=== PATIENT | female | born 1940 | race Caucasian/White ===

== ENCOUNTER 2020-02-08 17:00 | Emergency (ER) | payer MEDICARE, OTHER, SELFPAY ==
[2020-02-08 17:06] VITALS: BP 126/80; PULSE 83; RESP 18; TEMP 36.2; O2SAT 95; BMI 20.5
--- NOTE | 2020-02-08 18:21 | ED_ITS ---
HPI - Abdominal Pain General: Chief Complaint: Abdominal Pain Stated Complaint: r sided abd pain Time Seen by Provider: 02/08/20 18:20 History of Present Illness: HPI narrative: Patient is a 79-year-old female comes to the ED with abdominal pain. She has a past medical history of hypertension, hyperlipidemia, aortic valve replacement and A. fib. Patient does take warfarin. Approximately 4 weeks ago patient was hospitalized after having a fall down a flight of stairs and she sustained lumbar compression fractures. She says she has been going to physical therapy for the past 2 to 3 weeks and has been doing well. Patient says she noticed some right rib pain that seemed mild since she had her fall injury. She notes the last 2 days she the right rib pain has gotten worse. Pain is pleuritic and worsens with any kind of movement. Denies any recent injury or fall in the past week to bring about right rib pain. She is currently on hydrocodone 5/325mg for her compression fractures and says she has been taking it to help with her right rib pain. Patient does say she is constipated and her last bowel movement was yesterday. She says is normal for her to have a bowel movement once every 2 days and she says stool is hard. Denies any fever, chills, chest pain, shortness of breath, nausea/vomiting, abdominal pain, diarrhea, dysuria or hematuria. Associated Symptoms: Denies chills, constipation, diarrhea, dysuria, fever(s), hematochezia, hematuria, nausea and vomiting Review of Systems Const: Denies: fever(s), chills or fatigue Eyes: Denies: change in vision or eye discomfort ENMT: Denies: throat pain, odynophagia, nasal discharge or nasal congestion Card: Reports: other (Right rib pain that is pleuritic.); Denies: chest pain, palpitations, edema, swelling of feet/ankles, dyspnea on exertion or orthopnea Resp: Reports: pain on inspiration (Right rib pain upon deep inspiration.); Denies: dyspnea, productive cough or non-productive cough GI: Denies: abdominal pain, nausea, vomiting, diarrhea, constipation or hematochezia : Denies: flank pain, dysuria or hematuria Musc: Denies: neck pain, back pain or extremity swelling Skin/Breast: Denies: rash or new lesions Neuro: Denies: headache(s), numbness in extremities or weakness in extremities PFSH ED PFSH: Medical History Anemia Atrial fibrillation Essential hypertension GERD (gastroesophageal reflux disease) Hyperlipidemia Pulmonary HTN Severe aortic stenosis Shingles Warfarin anticoagulation Surgical History S/P angioplasty with stent S/P AVR (aortic valve replacement) S/P hip replacement S/P rotator cuff repair Status cardiac pacemaker Family History Grandmother Hypertension CHF (congestive heart failure) Other Cancer Social History Smoking and tobacco status: former smoker Alcohol intake: never Lives independently: Yes Marital status: / Current occupational status: retired Current gender identity: Female Josiane/Spiritism: Restorationism Physical Exam Const: COMMON NORMALS: no acute distress, patient oriented x3, healthy appearing and alert GENERAL APPEARANCE: cooperative and comfortable HENMT: COMMON NORMALS: normocephalic HEAD & SCALP: normocephalic MOUTH: Normal oral and palatal mucosa present THROAT: posterior oropharynx normal and uvula midline Neck/C-Spine: COMMON NORMALS: supple GENERAL: Yes normal visual inspection Chest: CHEST: Yes tenderness rib right mid-axillary line involving the 7th rib and involving the 8th rib Resp: COMMON NORMALS: normal respiratory effort, No retractions, No use of ac cessory muscles and clear to auscultation bilaterally AUSCULTATION: clear to auscultation bilaterally Cardio: COMMON NORMALS: regular rate, regular rhythm, S1 normal heart sound present, S2 normal heart sound present, No gallops present (Cardio), No clicks present (Cardio), No murmurs present (Cardio) and Peripheral pulses 2+ throughout RATE: regular rate RHYTHM: regular rhythm HEART SOUNDS: S1 normal heart sound present and S2 normal heart sound present PERIPHERAL PULSES: Peripheral pulses 2+ throughout GI: COMMON NORMALS: Normal to inspection, nondistended, normoactive bowel sounds present, Soft to palpation, non-tender and no masses PALPATION: Yes Soft to palpation OTHER: Patient has no abdominal tenderness throughout all the quadrants with deep and light palpation. : COMMON NORMALS: Yes no CVA tenderness BLADDER/KIDNEY EXAM: Yes no CVA tenderness Back/Pelvis: COMMON NORMALS: no CVA tenderness Extremity: COMMON NORMALS: normal to inspection and no pedal edema Neuro: COMMON NORMALS: patient oriented x3 SENSORIUM/ORIENTATION: Yes alert GAIT: Yes Normal gait present Skin: GENERAL SKIN EXAM: dry skin Course Vital Signs: Vital signs: Vital Signs Temperature 97.1 F L 02/08/20 17:06 Pulse Rate 63 02/08/20 21:04 Respiratory Rate 18 02/08/20 21:04 Blood Pressure 106/63 02/08/20 21:04 Pulse Oximetry 95 02/08/20 21:04 MDM - Abdominal Pain MDM Narrative: Medical decision making narrative: Patient is an 79-year-old female comes to the ED with pleuritic right rib pain. Patient had a fall approximately 4 weeks ago and was hospitalized for it. She had lumbar compression fractures from fall. Patient says she has noticed some right rib pain about a week ago but it got more severe in the past couple days after physical therapy. Patient also complained of having some constipation. Exam shows right rib tenderness. And no abdominal tenderness upon palpation. KUB shows some moderate constipation without bowel dilation or signs of obstruction. Chest x-ray shows possible right rib fracture. CBC and CMP and lipase were within normal range. Vital stable. Patient diagnosed with right rib fracture. She was told to limit activity, rest and apply cold pack on right ribs to help with healing. Return to ED precautions given. Patient understood agree with plan. Lab Data: Attestation: I reviewed the patient's lab results. Labs: Lab Results 02/08/20 02/08/20 Range/Units 19:00 19:00 WBC 7.1 (4.0-10.0) 10^3/ uL RBC 3.39 L (4.1-5.3) 10^6/u L Hgb 10.3 L (11.5-15.3) g/dL Hct 32.0 L (37.0-47.0) % MCV 94.4 (81-99) fL MCH 30.4 (28.0-34.0) pg MCHC 32.2 (30.0-36.0) g/dL RDW 12.6 (12.1-15.1) % Plt Count 143 (130-400) 10^3/c mm MPV 12.0 H (7.4-10.4) fL Neut % (Auto) 63.3 % Lymph % (Auto) 23.6 % [place] % (Auto) 11.7 % Eos % (Auto) 0.8 % Baso % (Auto) 0.3 % Neut # (Auto) 4.48 (1.8-7.7) 10^3/u L Lymph # (Auto) 1.7 (0.8-4.8) 10^3/u L [place] # (Auto) 0.8 (0.2-0.9) 10^3/u L Eos # (Auto) 0.1 (0.0-0.8) 10^3/u L Baso # (Auto) 0.0 (0.0-0.1) 10^3/u L Nucleated RBC % (a uto) 0 % Nucleated RBCs # 0.0 /100WBC Sodium 137 (136-145) mmol/L Potassium 4.5 (3.5-5.1) mmol/L Chloride 104 (98-107) mmol/L Carbon Dioxide 26 (22-29) mmol/L Anion Gap 11.5 (5-19) BUN 15 (8-23) mg/dL Creatinine 0.8 (0.5-0.9) mg/dL GFR Calculation Not Reportable Glucose 105 (65-115) mg/dL Calculated Osmolal ity 285 (285-295) mOsm/k g Calcium 9.0 (8.5-10.5) mg/dL Total Bilirubin 0.4 (0.15-1.2) mg/dL AST 17 (0-32) U/L ALT 8 (0-33) U/L Alkaline Phosphata se 96 (35-105) IU/L Total Protein 6.0 L (6.6-8.7) g/dL Albumin 3.5 (3.5-5.2) g/dL Globulin 2.5 (1.3-4.6) g/dL Lipase 55 (13-60) U/L Imaging Data ^: KUB: Attestation: I personally reviewed and interpreted this imaging study as follows: Radiologist's impression: [address] [address] XRay Report Signed Patient: Javed Arevalo Unit #: [id number] : 1940 Age/Sex: 79 / F ADM Date: 02/08/20 Loc: ER Room/Bed: Attending Dr: Ordering Provider/Ordering MD: Oskar Waggoner Date of Service: 02/08/20 Procedure(s): XR KUB portable [id number] Accession Number(s): [id number] Report Number: [id number] PROCEDURE INFORMATION: Exam: XR Abdomen, 1 View Exam date and time: 02/08/2020 6:49 PM Age: 79 years old Clinical indication: Abdominal pain; Localized; Right; Additional info: Constipation TECHNIQUE: Imaging protocol: XR of the abdomen. Views: Frontal supine view of the abdomen. 1 View. COMPARISON: CT abdomen pelvis w con* [id number] 02/25/2018 1:06 PM FINDINGS: Gastrointestinal tract: Moderate constipation without bowel dilation or air-fluid levels to indicate obstruction. Organs: Calcified fibroid over the right pelvis. Bones/joints: Bilateral hip arthroplasty changes. XR/XR KUB portable [id number] IMPRESSION: Moderate constipation without bowel dilation or air-fluid levels to indicate obstruction. Dictated By: Reese Waters MD Signed By: Reese Waters MD Signed Date/Time: 02/08/202244 DD/ 43 CXR: Attestation: I personally reviewed and interpreted this imaging study as follows: My impression: Right rib x-ray?. Possible right rib fracture identified that is nondisplaced. Pending final radiology report. Radiologist's impression: [address] [address] XRay Report Signed Patient: Javed Arevalo Unit #: [id number] : 1940 Age/Sex: 79 / F ADM Date: 02/08/20 Loc: ER Room/Bed: Attending Dr: Ordering Provider/Ordering MD: Oskar Waggoner Date of Service: 02/08/20 Procedure(s): XR ribs RT mn 3V w CXR1V 86188 Accession Number(s): [id number] Report Number: [id number] PROCEDURE INFORMATION: Exam: XR Right Ribs with PA Chest, 3 Views Exam date and time: 02/08/2020 6:49 PM Age: 79 years old Clinical indication: Other: RT rib pain; Additional info: Right rib pain TECHNIQUE: Imaging protocol: XR Right ribs 3 views with PA chest. COMPARISON: CR Chest 2 views* [id number] 02/23/2018 4:14 PM FINDINGS: Tubes, catheters and devices: Aortic valve prosthesis. Lungs: Right midlung calcified granuloma. Calcified granulomas. Pleural space: Unremarkable. No pleural effusion. No pneumothorax. Heart/Mediastinum: Unremarkable. No cardiomegaly. Bones/joints: Right humeral head surgical anchors. XR/XR ribs RT mn 3V w CXR1V [id number] IMPRESSION: Negative for right rib bony abnormality. Dictated By: Reese Waters MD Signed By: Reese Waters MD Signed Date/Time: 02/08/202243 DD/ 42 Discharge Plan Discharge Patient Disposition: Home Clinical Impression: Right rib fracture Qualifiers: Encounter type: initial encounter Rib fracture type: single rib Fracture type: closed Qualified Code(s): S22.31XA - Fracture of one rib, right side, initial encounter for closed fracture Condition: Stable Prescriptions: No Action omeprazole 20 mg capsule,delayed release(DR/EC) 20 mg PO QDAY RF: 0 olmesartan-hydrochlorothiazide 20-12.5 mg tablet 1 tab PO QDAY RF: 0 timolol 0.25 % drops 1 drop ophthalmic (eye) QDAY RF: 0 furosemide 40 mg tablet 40 mg PO QAM RF: 0 vit C,E,Zn,Mv--aws-zeax 250-2.5-0.5 mg capsule PO DAILY RF: 0 escitalopram oxalate [Lexapro] 5 mg tablet 5 mg PO QDAY RF: 0 levothyroxine 50 mcg tablet 50 mcg PO QDAY RF: 0 atorvastatin 10 mg tablet 10 mg PO QDAY RF: 0 warfarin 1 mg tablet 1 mg PO DAILY Qty: 30 RF: 3 warfarin 2 mg tablet 2 mg PO DAILY Qty: 30 RF: 3 warfarin 2.5 mg tablet 2.5 mg PO DAILY Qty: 30 RF: 3 Discharge Orders: Discharge ED (Routine); Ordered 02/08/20 Ordered By: Oskar Waggoner Referrals: Oskar Meehan MD [Primary Care Provider] - Discharge Diet: Regular Discharge Activity: Limit activity as instructed Patient Instructions: Rib Fracture (ED) Activity Restrictions/Additional Instructions: Follow-up with medical provider as directed in 7 to 10 days for reevaluation. Continue taking all home medications as prescribed. Take your previously prescribed pain medications to help with right rib pain. Limit activity and lifting rest and ice sore spot on ribs. Return to the ER or your medical provider if condition worsens. Please read and understand discharge instructions. If any questions, please ask. Coding Level of Care Code ED Cream Separator Operator for Sudarshan Fwd Exam Comprehensive
--- NOTE | 2020-02-08 18:39 | XRR_ITS ---
PROCEDURE INFORMATION: Exam: XR Right Ribs with PA Chest, 3 Views Exam date and time: 02/08/2020 6:49 PM Age: 79 years old Clinical indication: Other: RT rib pain; Additional info: Right rib pain TECHNIQUE: Imaging protocol: XR Right ribs 3 views with PA chest. COMPARISON: CR Chest 2 views* [id number] 02/23/2018 4:14 PM FINDINGS: Tubes, catheters and devices: Aortic valve prosthesis. Lungs: Right midlung calcified granuloma. Calcified granulomas. Pleural space: Unremarkable. No pleural effusion. No pneumothorax. Heart/Mediastinum: Unremarkable. No cardiomegaly. Bones/joints: Right humeral head surgical anchors. XR/XR ribs RT mn 3V w CXR1V [id number] IMPRESSION: Negative for right rib bony abnormality.
--- NOTE | 2020-02-08 18:39 | XRR_ITS ---
PROCEDURE INFORMATION: Exam: XR Abdomen, 1 View Exam date and time: 02/08/2020 6:49 PM Age: 79 years old Clinical indication: Abdominal pain; Localized; Right; Additional info: Constipation TECHNIQUE: Imaging protocol: XR of the abdomen. Views: Frontal supine view of the abdomen. 1 View. COMPARISON: CT abdomen pelvis w con* [id number] 02/25/2018 1:06 PM FINDINGS: Gastrointestinal tract: Moderate constipation without bowel dilation or air-fluid levels to indicate obstruction. Organs: Calcified fibroid over the right pelvis. Bones/joints: Bilateral hip arthroplasty changes. XR/XR KUB portable [id number] IMPRESSION: Moderate constipation without bowel dilation or air-fluid levels to indicate obstruction.
--- NOTE | 2020-02-08 18:56 | PC.NURSE ---
PCXR at bedside
[2020-02-08 19:00] VITALS: BP 105/56; PULSE 90; RESP 18; O2SAT 95
[2020-02-08 19:29] LABS: Basophils % 0.3 %; Eosinophils # 0.1 10^3/uL (0.0-0.8); Eosinophils % 0.8 %; Hemoglobin 10.3 g/dL (11.5-15.3); Lymphocytes # 1.7 10^3/uL (0.8-4.8); Lymphocytes % 23.6 %; Mean Corpuscular HGB Conc 32.2 g/dL (30.0-36.0); Mean Corpuscular Hemoglobin 30.4 pg (28.0-34.0); Mean Corpuscular Volume 94.4 fL (81-99); Monocytes # 0.8 10^3/uL (0.2-0.9); Monocytes % 11.7 %; Neutrophils # 4.48 10^3/uL (1.8-7.7); Neutrophils % 63.3 %; Nucleated Red Blood Cells % 0 %; Platelet Count 143 10^3/cmm (130-400); Red Blood Count 3.39 10^6/uL (4.1-5.3); Red Cell Distribution Width 12.6 % (12.1-15.1); White Blood Count 7.1 10^3/uL (4.0-10.0)
[2020-02-08 20:00] VITALS: PULSE 84; RESP 18; O2SAT 94
[2020-02-08 20:05] VITALS: O2SAT 93
[2020-02-08 20:07] LABS: Alanine Aminotransferase 8 U/L (0-33); Albumin Level 3.5 g/dL (3.5-5.2); Alkaline Phosphatase 96 IU/L (35-105); Anion Gap 11.5 (5-19); Aspartate Amino Transferase 17 U/L (0-32); Blood Urea Nitrogen 15 mg/dL (8-23); Carbon Dioxide 26 mmol/L (22-29); Chloride 104 mmol/L (98-107); Globulin 2.5 g/dL (1.3-4.6); Glucose 105 mg/dL (65-115); Lipase 55 U/L (13-60); Osmolality Calculated 285 mOsm/kg (285-295); Potassium 4.5 mmol/L (3.5-5.1); Sodium 137 mmol/L (136-145); Total Bilirubin 0.4 mg/dL (0.15-1.2)
[2020-02-08 21:04] VITALS: BP 106/63; PULSE 63; RESP 18; O2SAT 95
== END 2020-02-08 21:39 | disposition home or self-care (01) ==
PROVIDERS: Emergency Provider Physician Assistant; PCP Family Medicine
DX: S22.31XA Fracture of one rib, right side, initial encounter for closed fracture (principal); Z79.01 Long term (current) use of anticoagulants; I48.91 Unspecified atrial fibrillation; I10 Essential (primary) hypertension; E78.5 Hyperlipidemia, unspecified; Z95.0 Presence of cardiac pacemaker; Z87.891 Personal history of nicotine dependence; W10.8XXA Fall (on) (from) other stairs and steps, initial encounter
CPT/HCPCS: 12345; 71101; 74018; 80053; 83690; 85025; 99283

== ENCOUNTER 2020-07-03 21:31 | Emergency (ER) | payer MEDICARE, OTHER, SELFPAY ==
[2020-07-03 21:52] VITALS: BP 190/92; PULSE 77; RESP 18; TEMP 36.6; O2SAT 96; BMI 19.8
--- NOTE | 2020-07-03 23:29 | CTR_ITS ---
PROCEDURE INFORMATION: Exam: CT Abdomen And Pelvis With Contrast Exam date and time: 07/03/2020 11:31 PM Age: 79 years old Clinical indication: Abdominal pain; Localized; Right lower quadrant (rlq); Prior surgery; Surgery type: Bilat thr; Patient HX: Rlq pain TECHNIQUE: Imaging protocol: Computed tomography of the abdomen and pelvis with contrast. Radiation optimization: All CT scans at this facility use at least one of these dose optimization techniques: automated exposure control; mA and/or kV adjustment per patient size (includes targeted exams where dose is matched to clinical indication); or iterative reconstruction. Contrast material: OMNI 300; Contrast volume: 95 ml; Contrast route: INTRAVENOUS (IV); COMPARISON: CT abdomen pelvis w con* [id number] 02/25/2018 1:06 PM RADIATION DOSE METRICS: Total DLP (mGy-cm): 1074.23 FINDINGS: Liver: Normal. No mass. Gallbladder and bile ducts: There is prominent pneumobilia with gas seen in the left hepatic lobe, common bile duct and within the gallbladder lumen. There is a prominent gallstones seen in the gallbladder fundus. Pancreas: Normal. No ductal dilation. Spleen: Normal. No splenomegaly. Adrenal glands: Normal. No mass. Kidneys and ureters: There are tiny bilateral renal cortical cysts. Stomach and bowel: Unremarkable. No obstruction. No mucosal thickening. Appendix: No evidence of appendicitis. Intraperitoneal space: Unremarkable. No free air. No significant fluid collection. Vasculature: Calcifications are seen within the thoracic and abdominal aorta, iliac and femoral arteries bilaterally. Lymph nodes: Unremarkable. No enlarged lymph nodes. Urinary bladder: Unremarkable as visualized. Reproductive: Unremarkable as visualized. Bones/joints: Status post bilateral bipolar hip replacements. This generates beam hardening artifact decreasing resolution within the pelvis. There is moderate compression the superior endplate vertebral body and mild compression of the L3 superior endplate. Soft tissues: Numerous calcifications are seen within the right posterior hemipelvis appearing stable compared 02/25/[address]/CT abdomen pelvis w con* [id number] IMPRESSION: 1. Prominent pneumobilia and intraluminal gas within the gallbladder. There is a prominent gallstone seen as well. Emphysematous cholecystitis cannot be entirely excluded. 2. Bilateral renal cortical cysts. No further workup needed. COMMENTS: Consistent with the [employer]'s Incidental Findings Committee white paper (J Am Kimberly Radiol 2018): Any incidental renal lesion less than 1 cm or classified as too small to characterize, or any incidental cystic renal lesion characterized as simple-appearing, is likely benign. No follow-up imaging is recommended for these lesions per consensus recommendations based on imaging criteria. Radiation Dose CTDIVOL = (mGy): DLP = 1074.23 (mGy-cm)
[2020-07-04 00:20] LABS: Basophils % 0.4 %; Eosinophils # 0.1 10^3/uL (0.0-0.8); Eosinophils % 1.1 %; Hematocrit 36.4 % (37.0-47.0); Hemoglobin 11.5 g/dL (11.5-15.3); Lymphocytes # 1.5 10^3/uL (0.8-4.8); Lymphocytes % 20.7 %; Mean Corpuscular HGB Conc 31.6 g/dL (30.0-36.0); Mean Corpuscular Volume 91.7 fL (81-99); Mean Platelet Volume 11.5 fL (7.4-10.4); Monocytes # 0.5 10^3/uL (0.2-0.9); Monocytes % 6.9 %; Neutrophils # 5.09 10^3/uL (1.8-7.7); Neutrophils % 70.5 %; Nucleated Red Blood Cells % 0 %; Platelet Count 130 10^3/cmm (130-400); Red Blood Count 3.97 10^6/uL (4.1-5.3); Red Cell Distribution Width 13.5 % (12.1-15.1); White Blood Count 7.2 10^3/uL (4.0-10.0)
[2020-07-04 00:22] VITALS: BP 184/97; PULSE 75; RESP 16; O2SAT 97
[2020-07-04 00:31] LABS: INR 1.58 (0.8-1.2)
[2020-07-04 00:38] LABS: Alanine Aminotransferase 14 U/L (0-33); Albumin Level 4.1 g/dL (3.5-5.2); Alkaline Phosphatase 93 IU/L (35-105); Anion Gap 11.9 (5-19); Aspartate Amino Transferase 26 U/L (0-32); Blood Urea Nitrogen 19 mg/dL (8-23); Calcium 8.9 mg/dL (8.5-10.5); Carbon Dioxide 30 mmol/L (22-29); Chloride 102 mmol/L (98-107); Globulin 2.7 g/dL (1.3-4.6); Glucose 109 mg/dL (65-115); Lipase 46 U/L (13-60); Osmolality Calculated 293 mOsm/kg (285-295); Potassium 3.9 mmol/L (3.5-5.1); Sodium 140 mmol/L (136-145); Total Bilirubin 0.5 mg/dL (0.15-1.2); Total Protein 6.8 g/dL (6.6-8.7)
[2020-07-04 00:39] LABS: Lactate (Lactic Acid level) 0.8 mmol/L (0.5-2.2)
[2020-07-04] MEDS: iohexol 300 mg/mL 100 mL Btl IV (00:47)
--- NOTE | 2020-07-04 01:25 | PC.NURSE ---
Patient refused pain and nausea medication. Patient not hurting or nausea at this time.
--- NOTE | 2020-07-04 01:54 | USR_ITS ---
PROCEDURE INFORMATION: Exam: US Abdomen, Limited; Right Upper Quadrant Exam date and time: 07/04/2020 3:01 AM Age: 79 years old Clinical indication: Abdominal pain; Acute; Prior surgery; Surgery date: 6+ months; Surgery type: Ercp; Additional info: Ruq pain TECHNIQUE: Imaging protocol: US abdomen. Real time ultrasound with image documentation. Limited exam focused on the right upper quadrant. COMPARISON: US gall bladder [id number] 02/23/2018 5:18 PM FINDINGS: Liver: Normal. No masses. Gallbladder: There is gallbladder wall thickening seen measuring 7.9 mm. Hyperechoic foci are seen within the gallbladder compatible with small gallstones. Hyperechoic foci exhibiting dirty shadowing is seen within the gallbladder compatible with intraluminal gas. There is a positive sonographic Leung sign elicited. Common bile duct: Normal. No stones. No dilation. Pancreas: Visualized pancreas is unremarkable. Right kidney: Normal. No mass. No hydronephrosis. US/US gall bladder [id number] IMPRESSION: Gallstones, gallbladder wall thickening, intraluminal gas densities and positive sonographic Leung sign compatible with emphysematous cholecystitis.
--- NOTE | 2020-07-04 03:07 | ED_ITS ---
HPI - Abdominal Pain General: Chief Complaint: Abdominal Pain Stated Complaint: ABDOMEN PAIN Time Seen by Provider: 07/03/20 23:29 History of Present Illness: HPI narrative: 79-year-old female, evidently with a history of gallstones, presents with right upper quadrant and epigastric pain. Started earlier in the evening, and persisted. She did have an episode of vomiting. No shortness of breath. No fever. No blood in the stool. MD elicited complaint: abdominal pain Pertinent past history: other Onset (ago): hour(s) Location: Epigastric and RUQ Severity: moderate Quality: cramping and stabbing Radiation: none Migration to: no migration Exacerbating factors: nothing Relieving factors: nothing Associated Symptoms: Reports belching; Denies chills, constipation, diarrhea, fever(s) and hematuria Review of Systems Const: Denies: fever(s) or chills Card: Denies: chest pain or palpitations Resp: Denies: dyspnea GI: Reports: belching; Denies: diarrhea or constipation : Denies: hematuria Neuro: Denies: headache(s), confusion or behavioral changes PFSH ED PFSH: Medical History (Updated 07/04/20 @ 03:53 by Bret Grullon DO) Anemia Atrial fibrillation Essential hypertension GERD (gastroesophageal reflux disease) Hyperlipidemia Pulmonary HTN Severe aortic stenosis Shingles Warfarin anticoagulation Surgical History S/P angioplasty with stent S/P AVR (aortic valve replacement) S/P hip replacement S/P rotator cuff repair Status cardiac pacemaker Family History Grandmother Hypertension CHF (congestive heart failure) Other Cancer Social History Smoking and tobacco status: former smoker Alcohol intake: never Lives independently: Yes Marital status: / Current occupational status: retired Current gender identity: Female Josiane/Sabianism: Shinto Physical Exam Const: COMMON NORMALS: no acute distress and patient oriented x3 GENERAL APPEARANCE: frail appearing HENMT: COMMON NORMALS: atraumatic HEAD & SCALP: atraumatic Chest: COMMONS NORMALS: normal inspection of the chest Resp: COMMON NORMALS: normal respiratory effort, No use of accessory muscles and clear to auscultation bilaterally AUSCULTATION: clear to auscultation bilaterally Cardio: COMMON NORMALS: regular rate and regular rhythm RATE: regular rate RHYTHM: regular rhythm GI: COMMON NORMALS: Normal to inspection, nondistended, normoactive bowel sounds present and Soft to palpation PALPATION: Yes Soft to palpation and Yes Tenderness to palpation present (GI) Details: RUQ and other (epigastric) Neuro: COMMON NORMALS: patient oriented x3 Course Consultations: Consultation #1: Yasir Vital Signs: Vital signs: Vital Signs Temperature 98.1 F 07/04/20 04:05 Pulse Rate 78 07/04/20 04:05 Respiratory Rate 16 07/04/20 04:05 Blood Pressure 148/80 07/04/20 04:05 Pulse Oximetry 97 07/04/20 04:05 MDM - Abdominal Pain MDM Narrative: Medical decision making narrative: 79-year-old female with a history of gallstones. She presents with epigastric and right upper quadrant pain. Her pain is improved. And resolved later after 2 mg of morphine and some Zofran. Her white blood cell count is 7.2. Her hemoglobin is 11.5. Her liver enzymes and electrolytes are otherwise normal essentially. Her CT scan showed pneumobilia. Ultrasound of the gallbladder shows gallstones, wall thickening, and intraluminal gas densities suggesting emphysematous cholecystitis. This lady's CRP is 1. Her symptoms are resolved. She is afebrile. Her vitals are good. She would like to go home. I can imagine her having acute emphysematous cholecystitis with normal indices such that she has an resolution of her symptoms. I consulted with surgery by phone, he agrees. He also agrees to see her in the office as an outpatient. They are instructed to call Monday morning for an appointment this coming week. Lab Data: Labs: Lab Results 07/04/20 07/04/20 07/04/20 Range/Units 00:09 00:09 00:09 WBC 7.2 (4.0-10.0) 10^3/ uL RBC 3.97 L (4.1-5.3) 10^6/u L Hgb 11.5 (11.5-15.3) g/dL Hct 36.4 L (37.0-47.0) % MCV 91.7 (81-99) fL MCH 29.0 (28.0-34.0) pg MCHC 31.6 (30.0-36.0) g/dL RDW 13.5 (12.1-15.1) % Plt Count 130 (130-400) 10^3/c mm MPV 11.5 H (7.4-10.4) fL Neut % (Auto) 70.5 % Lymph % (Auto) 20.7 % [place] % (Auto) 6.9 % Eos % (Auto) 1.1 % Baso % (Auto) 0.4 % Neut # (Auto) 5.09 (1.8-7.7) 10^3/u L Lymph # (Auto) 1.5 (0.8-4.8) 10^3/u L [place] # (Auto) 0.5 (0.2-0.9) 10^3/u L Eos # (Auto) 0.1 (0.0-0.8) 10^3/u L Baso # (Auto) 0.0 (0.0-0.1) 10^3/u L Nucleated RBC % (a uto) 0 % Nucleated RBCs # 0.0 /100WBC PT 19.20 H (12.1-14.9) SECO NDS INR 1.58 H (0.8-1.2) Sodium 140 (136-145) mmol/L Potassium 3.9 (3.5-5.1) mmol/L Chloride 102 (98-107) mmol/L Carbon Dioxide 30 H (22-29) mmol/L Anion Gap 11.9 (5-19) BUN 19 (8-23) mg/dL Creatinine 0.6 (0.5-0.9) mg/dL GFR Calculation Not Reportable Glucose 109 (65-115) mg/dL Calculated Osmolal ity 293 (285-295) mOsm/k g Lactate (0.5-2.2) mmol/L Calcium 8.9 (8.5-10.5) mg/dL Total Bilirubin 0.5 (0.15-1.2) mg/dL AST 26 (0-32) U/L ALT 14 (0-33) U/L Alkaline Phosphata se 93 (35-105) IU/L C-Reactive Protein 1.0 (0.0-4.9) mg/L Total Protein 6.8 (6.6-8.7) g/dL Albumin 4.1 (3.5-5.2) g/dL Globulin 2.7 (1.3-4.6) g/dL Lipase 46 (13-60) U/L 07/04/20 Range/Units 00:09 WBC (4.0-10.0) 10^3/ uL RBC (4.1-5.3) 10^6/u L Hgb (11.5-15.3) g/dL Hct (37.0-47.0) % MCV (81-99) fL MCH (28.0-34.0) pg MCHC (30.0-36.0) g/dL RDW (12.1-15.1) % Plt Count (130-400) 10^3/c mm MPV (7.4-10.4) fL Neut % (Auto) % Lymph % (Auto) % [place] % (Auto) % Eos % (Auto) % Baso % (Auto) % Neut # (Auto) (1.8-7.7) 10^3/u L Lymph # (Auto) (0.8-4.8) 10^3/u L [place] # (Auto) (0.2-0.9) 10^3/u L Eos # (Auto) (0.0-0.8) 10^3/u L Baso # (Auto) (0.0-0.1) 10^3/u L Nucleated RBC % (a uto) % Nucleated RBCs # /100WBC PT (12.1-14.9) SECO NDS INR (0.8-1.2) Sodium (136-145) mmol/L Potassium (3.5-5.1) mmol/L Chloride (98-107) mmol/L Carbon Dioxide (22-29) mmol/L Anion Gap (5-19) BUN (8-23) mg/dL Creatinine (0.5-0.9) mg/dL GFR Calculation Glucose (65-115) mg/dL Calculated Osmolal ity (285-295) mOsm/k g Lactate 0.8 (0.5-2.2) mmol/L Calcium (8.5-10.5) mg/dL Total Bilirubin (0.15-1.2) mg/dL AST (0-32) U/L ALT (0-33) U/L Alkaline Phosphata se (35-105) IU/L C-Reactive Protein (0.0-4.9) mg/L Total Protein (6.6-8.7) g/dL Albumin (3.5-5.2) g/dL Globulin (1.3-4.6) g/dL Lipase (13-60) U/L Discharge Plan Discharge Patient Disposition: Home Clinical Impression: Biliary colic Condition: Stable Prescriptions: No Action omeprazole 20 mg capsule,delayed release(DR/EC) 20 mg PO QDAY RF: 0 olmesartan-hydrochlorothiazide 20-12.5 mg tablet 1 tab PO QDAY RF: 0 timolol 0.25 % drops 1 drop ophthalmic (eye) QDAY RF: 0 furosemide 40 mg tablet 40 mg PO QAM RF: 0 vit C,E,Zn,Ce-apxlt3-fkz-zeax 250-2.5-0.5 mg capsule PO DAILY RF: 0 escitalopram oxalate [Lexapro] 5 mg tablet 5 mg PO QDAY RF: 0 levothyroxine 50 mcg tablet 50 mcg PO QDAY RF: 0 atorvastatin 10 mg tablet 10 mg PO QDAY RF: 0 warfarin 1 mg tablet 1 mg PO DAILY Qty: 30 RF: 3 warfarin 2.5 mg tablet 2.5 mg PO DAILY Qty: 30 RF: 3 warfarin 2 mg tablet See Rx Instructions mg .ROUTE .COMPLEX Qty: 30 RF: 3 Discharge Orders: Discharge ED (Routine); Ordered 07/04/20 Ordered By: Bret Grullon Referrals: Jamie Cooley MD [Physician] - 4-7 days Oskar Meehan MD [Primary Care Provider] - 1-3 days Discharge Diet: Advance as tolerated and Clear Liquid Discharge Activity: Increase activity as tolerated Patient Instructions: Biliary Colic (ED) Activity Restrictions/Additional Instructions: Return for fever greater than 100, return of pain, nausea or vomiting, diarrhea, any other concerning symptoms. Coding Level of Care Code ED Supervisor Of Way for Patriag Fwd Exam Detailed
[2020-07-04 03:30] VITALS: BP 148/80; PULSE 77; RESP 16; O2SAT 96
[2020-07-04 04:05] VITALS: BP 148/80; PULSE 78; RESP 16; TEMP 36.7; O2SAT 97
== END 2020-07-04 04:08 | disposition home or self-care (01) ==
PROVIDERS: Emergency Provider Emergency Medicine; PCP Family Medicine
DX: K80.50 Calculus of bile duct without cholangitis or cholecystitis without obstruction (principal); Z79.01 Long term (current) use of anticoagulants; I48.91 Unspecified atrial fibrillation; I10 Essential (primary) hypertension; E78.5 Hyperlipidemia, unspecified; Z95.0 Presence of cardiac pacemaker; Z87.891 Personal history of nicotine dependence
CPT/HCPCS: 74177; 76705; 80053; 83605; 83690; 85025; 85610; 86140; 96374; 96375; 99283; Q9967

== ENCOUNTER → 2021-05-06 12:52 | Outpatient (BNVA) | payer MEDICARE, OTHER, SELFPAY | PROVIDERS: PCP Family Medicine; Visit Provider Internal Medicine Cardiovascular Disease | DX: Z79.01 Long term (current) use of anticoagulants (principal) ==

== ENCOUNTER → 2021-05-13 08:35 | Outpatient (BNVA) | payer MEDICARE, OTHER, SELFPAY | PROVIDERS: PCP Family Medicine; Visit Provider Internal Medicine Cardiovascular Disease | DX: Z79.01 Long term (current) use of anticoagulants (principal) ==

== ENCOUNTER → 2021-05-19 09:21 | Outpatient (BNVA) | payer MEDICARE, OTHER, SELFPAY | PROVIDERS: PCP Family Medicine; Visit Provider Internal Medicine Cardiovascular Disease | DX: Z79.01 Long term (current) use of anticoagulants (principal) ==

== ENCOUNTER → 2021-05-27 15:38 | Outpatient (BNVA) | payer MEDICARE, OTHER, SELFPAY | PROVIDERS: PCP Family Medicine; Visit Provider Internal Medicine Cardiovascular Disease | DX: Z79.01 Long term (current) use of anticoagulants (principal) ==

== ENCOUNTER → 2021-06-03 09:34 | Outpatient (BNVA) | payer MEDICARE, OTHER, SELFPAY | PROVIDERS: PCP Family Medicine; Visit Provider Internal Medicine | DX: I48.0 Paroxysmal atrial fibrillation (principal); Z79.01 Long term (current) use of anticoagulants ==

== ENCOUNTER → 2021-06-11 12:37 | Outpatient (BNVA) | payer MEDICARE, OTHER, SELFPAY | PROVIDERS: PCP Family Medicine; Visit Provider Internal Medicine Cardiovascular Disease | DX: Z79.01 Long term (current) use of anticoagulants (principal) ==

== ENCOUNTER → 2021-06-23 11:38 | Outpatient (BNVA) | payer MEDICARE, OTHER, SELFPAY | PROVIDERS: PCP Family Medicine; Visit Provider Internal Medicine | DX: Z79.01 Long term (current) use of anticoagulants (principal) ==

== ENCOUNTER → 2021-07-01 09:14 | Outpatient (BNVA) | payer MEDICARE, OTHER, SELFPAY | PROVIDERS: PCP Family Medicine; Visit Provider Internal Medicine Cardiovascular Disease | DX: Z79.01 Long term (current) use of anticoagulants (principal) ==

== ENCOUNTER → 2021-07-09 08:46 | Outpatient (BNVA) | payer MEDICARE, OTHER, SELFPAY | PROVIDERS: PCP Family Medicine; Visit Provider Internal Medicine | DX: Z79.01 Long term (current) use of anticoagulants (principal) ==

== ENCOUNTER → 2021-07-16 10:57 | Outpatient (BNVA) | payer MEDICARE, OTHER, SELFPAY | PROVIDERS: PCP Family Medicine; Visit Provider Internal Medicine Cardiovascular Disease | DX: Z79.01 Long term (current) use of anticoagulants (principal) ==

== ENCOUNTER → 2021-07-23 08:29 | Outpatient (BNVA) | payer MEDICARE, OTHER, SELFPAY | PROVIDERS: PCP Family Medicine; Visit Provider Internal Medicine | DX: Z79.01 Long term (current) use of anticoagulants (principal) ==

== ENCOUNTER → 2021-07-30 12:15 | Outpatient (BNVA) | payer MEDICARE, OTHER, SELFPAY | PROVIDERS: PCP Family Medicine; Visit Provider Internal Medicine | DX: Z79.01 Long term (current) use of anticoagulants (principal) ==

== ENCOUNTER → 2021-08-06 10:13 | Outpatient (BNVA) | payer MEDICARE, OTHER, SELFPAY | PROVIDERS: PCP Family Medicine; Visit Provider Internal Medicine | DX: Z79.01 Long term (current) use of anticoagulants (principal) ==

== ENCOUNTER → 2021-08-13 09:02 | Outpatient (BNVA) | payer MEDICARE, OTHER, SELFPAY | PROVIDERS: PCP Family Medicine; Visit Provider Internal Medicine | DX: Z79.01 Long term (current) use of anticoagulants (principal) ==

== ENCOUNTER → 2021-08-19 09:48 | Outpatient (BNVA) | payer MEDICARE, OTHER, SELFPAY | PROVIDERS: PCP Family Medicine; Visit Provider Internal Medicine Cardiovascular Disease | DX: Z79.01 Long term (current) use of anticoagulants (principal) ==

== ENCOUNTER → 2021-08-26 17:17 | Outpatient (BNVA) | payer MEDICARE, OTHER, SELFPAY | PROVIDERS: PCP Family Medicine; Visit Provider Internal Medicine Cardiovascular Disease | DX: Z79.01 Long term (current) use of anticoagulants (principal) ==

== ENCOUNTER → 2021-09-02 12:39 | Outpatient (BNVA) | payer MEDICARE, OTHER, SELFPAY | PROVIDERS: PCP Family Medicine; Visit Provider Internal Medicine Cardiovascular Disease | DX: Z79.01 Long term (current) use of anticoagulants (principal) ==

== ENCOUNTER → 2021-09-10 11:31 | Outpatient (BNVA) | payer MEDICARE, OTHER, SELFPAY | PROVIDERS: PCP Family Medicine; Visit Provider Internal Medicine | DX: Z79.01 Long term (current) use of anticoagulants (principal) ==

== ENCOUNTER → 2021-09-15 09:45 | Outpatient (BNVA) | payer MEDICARE, OTHER, SELFPAY | PROVIDERS: PCP Family Medicine; Visit Provider Internal Medicine Cardiovascular Disease | DX: Z79.01 Long term (current) use of anticoagulants (principal) ==

== ENCOUNTER → 2021-09-24 08:13 | Outpatient (BNVA) | payer MEDICARE, OTHER, SELFPAY | PROVIDERS: PCP Family Medicine; Visit Provider Internal Medicine Cardiovascular Disease | DX: Z79.01 Long term (current) use of anticoagulants (principal) ==

== ENCOUNTER → 2021-09-28 11:09 | Outpatient (BNVA) | payer MEDICARE, OTHER, SELFPAY | PROVIDERS: PCP Family Medicine; Visit Provider Internal Medicine Cardiovascular Disease | DX: Z79.01 Long term (current) use of anticoagulants (principal) ==

== ENCOUNTER → 2021-12-08 11:15 | Outpatient (BNVA) | payer MEDICARE, OTHER, SELFPAY | PROVIDERS: PCP Family Medicine; Visit Provider Internal Medicine Cardiovascular Disease | DX: Z45.010 Encounter for checking and testing of cardiac pacemaker pulse generator [battery] (principal) | CPT/HCPCS: 93280 ==

== ENCOUNTER → 2022-05-11 13:25 | Outpatient (BNVA) | payer MEDICARE, OTHER, SELFPAY | PROVIDERS: PCP Family Medicine; Visit Provider Internal Medicine Cardiovascular Disease | DX: I48.0 Paroxysmal atrial fibrillation (principal); Z95.0 Presence of cardiac pacemaker; Z79.01 Long term (current) use of anticoagulants; I10 Essential (primary) hypertension; I27.20 Pulmonary hypertension, unspecified; E78.5 Hyperlipidemia, unspecified; Z95.2 Presence of prosthetic heart valve; Z87.891 Personal history of nicotine dependence | CPT/HCPCS: 85610; 99213 ==

== ENCOUNTER → 2022-11-09 11:16 | Outpatient (BNVA) | payer MEDICARE, OTHER, SELFPAY | PROVIDERS: PCP Family Medicine; Visit Provider Internal Medicine Cardiovascular Disease | DX: Z95.0 Presence of cardiac pacemaker (principal); Z79.01 Long term (current) use of anticoagulants; I10 Essential (primary) hypertension; E78.5 Hyperlipidemia, unspecified; I27.20 Pulmonary hypertension, unspecified; Z95.2 Presence of prosthetic heart valve; I48.0 Paroxysmal atrial fibrillation; Z87.891 Personal history of nicotine dependence | CPT/HCPCS: 99213 ==

== ENCOUNTER → 2023-08-30 10:19 | Outpatient (BNVA) | payer MEDICARE, OTHER, SELFPAY | PROVIDERS: PCP Family Medicine; Visit Provider Internal Medicine Cardiovascular Disease | DX: I48.0 Paroxysmal atrial fibrillation (principal); Z95.2 Presence of prosthetic heart valve; Z95.0 Presence of cardiac pacemaker; E78.5 Hyperlipidemia, unspecified; I10 Essential (primary) hypertension; Z79.01 Long term (current) use of anticoagulants; Z87.891 Personal history of nicotine dependence | CPT/HCPCS: 99213 ==

== ENCOUNTER 2023-11-03 16:27 | Emergency (ER) | payer MEDICARE, OTHER, SELFPAY ==
--- NOTE | 2023-11-03 16:29 | XRR_ITS ---
PROCEDURE INFORMATION: Exam: XR Chest Exam date and time: 11/03/2023 4:46 PM Age: 83 years old Clinical indication: Dyspnea; Additional info: Dyspnea/cough TECHNIQUE: Imaging protocol: Radiologic exam of the chest. Views: 1 view. COMPARISON: CR XR ribs RT mn 3V w CXR1V [id number] 02/08/2020 6:51 PM FINDINGS: Tubes, catheters and devices: There is stable intact pacemaker hardware. Lungs: Stable small granuloma in the right lung. No consolidation. Pleural spaces: Unremarkable. No pleural effusion. No pneumothorax. Heart/Mediastinum: Unremarkable. No cardiomegaly. Bones/joints: No acute findings. An anchor is seen in the right humeral head. XR/XR chest 1V portable [id number] IMPRESSION: No acute findings.
[2023-11-03 16:30] VITALS: BP 126/65; PULSE 83; RESP 20; TEMP 36.5; O2SAT 94; BMI 13.3
--- NOTE | 2023-11-03 16:41 | ECG_ITS ---
[facility] Test Date: 2023-11-03 Pat Name: Ariana Arevalo Department: Room: Gender: Female Nurses' Association Counselor: : 1940 Requested By: Wei Monzon Order Number: [id number] Sujit MD: Jaspreet Anthony M.D. Measurements Intervals [place] Rate: 91 P: 0 UT: 0 QRS: -72 QRSD: 157 T: 81 QT: 426 QTc: 525 Interpretive Statements ELECTRONIC VENTRICULAR PACEMAKER A sensed V paced rhythm ABNORMAL RHYTHM ECG Compared to ECG 02/23/2018 15:51:45 Sinus rhythm no longer present Electronically Signed On 11-03-2023 18:19:53 CDT by Jaspreet Anthony M.D. [email or web address]
--- NOTE | 2023-11-03 16:42 | ED_ITS ---
Documented by User: Wei Daily DO 11/04/23 08:16 HPI - Altered Mental Status 2 General: Chief Complaint: Altered Mental Status Stated Complaint: falls, ams Time Seen by Provider: 11/03/23 16:28 History of Present Illness: 83-year-old female presents to the [facility] ency room with report of weakness altered mental status confusion multiple falls at home. When I first came to see the patient there is no family available she cannot really relate much history. She repeatedly said well her daughter just wanted her checked out but she could not tell me specifically what was wrong when asked about breathing abdominal pain chest pain she denies any the same she denies difficulty with urination. Related Data Home Medications Medication Instructions Recorded Confirmed omeprazole 20 mg capsule,delayed 20 mg PO QDAY 03/27/19 08/30/23 release vit cap PO DAILY 03/27/19 08/30/23 C,E,zinc,Wu-payji-7-lutein-zeaxanthin 250 mg-2.5 mg-0.5 mg capsule atorvastatin 10 mg tablet 10 mg PO QDAY 03/29/19 08/30/23 levothyroxine 50 mcg tablet 50 mcg PO QDAY 03/29/19 08/30/23 acetaminophen 325 mg capsule 325 mg PO QID PRN 05/11/22 08/30/23 cetirizine 10 mg capsule (All Day 10 mg PO DAILY PRN 05/11/22 08/30/23 Allergy (cetirizine)) escitalopram oxalate 5 mg tablet 10 mg PO QDAY 05/11/22 08/30/23 (Lexapro) vit C 250 mg-vit E 90 mg-zinc 40 1 tab PO BID 05/11/22 08/30/23 mg-copper 1 [id number] capsule (PreserVision AREDS-2) latanoprost 0.005 % eye drops 1 drp ophthalmic (eye) DAILY 11/09/22 08/30/23 timolol 0.25 % eye drops 1 drp ophthalmic (eye) BID 11/09/22 08/30/23 Previous Rx's Medication Instructions Recorded warfarin 2.5 mg tablet 2.5 mg PO DAILY #30 tabs 08/30/19 warfarin 2 mg tablet See Rx Instructions .Route 03/16/20 .COMPLEX #30 tabs warfarin 1 mg tablet 1 mg PO DIRECTED #90 tabs 05/23/22 warfarin 3 mg tablet 3 mg PO DAILY #90 tabs 01/31/23 warfarin 2 mg tablet 2 mg PO DIRECTED #90 tabs 09/18/23 levofloxacin 500 mg tablet 500 mg PO DAILY 7 days #7 tabs 11/03/23 metronidazole 500 mg tablet 500 mg PO BID 7 days #14 tabs 11/03/23 Allergies Allergy/AdvReac Type Severity Reaction Status Date / Time piperacillin [From Zosyn] Allergy Severe ALGY-Hives Verified 08/30/23 10:31 tazobactam [From Zosyn] Allergy Severe ALGY-Hives Verified 08/30/23 10:31 Review of Systems 2 General: Reports: ROS unobtainable due to mental status PFSH ED 2 PFSH: Medical History Warfarin anticoagulation Anemia GERD (gastroesophageal reflux disease) Essential hypertension Hyperlipidemia Shingles Severe aortic stenosis Pulmonary HTN Atrial fibrillation Surgical History S/P hip replacement S/P rotator cuff repair Status cardiac pacemaker S/P AVR (aortic valve replacement) Family History Grandmother Hypertension Congestive heart failure (CHF) Other Cancer Social History Smoking and tobacco/nicotine status: former use of tobacco/nicotine Alcohol intake: never Substance/Drug Use: never Lives independently: Yes Marital status: / Current occupational status: retired Current gender identity: Female Josiane/Mosque: [employer] Physical Exam 2 Const: GENERAL APPEARANCE: cooperative ORIENTATION/CONSCIOUSNESS: Yes awake HENMT: COMMON NORMALS: normocephalic, atraumatic and hearing grossly normal bilaterally HEAD & SCALP: normocephalic and atraumatic Resp: COMMON NORMALS: normal respiratory effort, No retractions, No use of accessory muscles and clear to auscultation bilaterally AUSCULTATION: clear to auscultation bilaterally Cardio: COMMON NORMALS: regular rate, regular rhythm and No murmurs present (Cardio) RATE: regular rate RHYTHM: regular rhythm GI: COMMON NORMALS: No hepatosplenomegaly present AUSCULTATION: Yes normoactive bowel sounds PALPATION: Yes Tenderness to palpation present (GI) (Generalized epigastric), No Guarding due to palpation present (GI) and Yes No hepatosplenomegaly present Extremity: COMMON NORMALS: normal to inspection, capillary refill normal, no clubbing, cyanosis or edema, no calf tenderness and no pedal edema Skin: OTHER: Multiple areas of ecchymosis in the upper extremities Course 2 Vital Signs: Vital signs: Vital Signs Temperature 97.7 F 11/03/23 16:30 Pulse Rate 100 11/03/23 21:57 Respiratory Rate 16 11/03/23 21:57 Blood Pressure 107/71 11/03/23 21:57 Pulse Oximetry 95 11/03/23 21:57 Oxygen Delivery Me thod Room Air 11/03/23 18:00 MDM - Altered Mental Status Medical Decision Making Care signed out to Dr. Grullon at change of shift. See final notes for diagnosis and disposition. 83-year-old female checked out at shift change. This lady has been more altered and weak than usual. Her vitals here been stable. She is afebrile. Saturations are good on room air. CBC is normal. BMP is not terribly remarkable. Liver enzymes however are elevated with a total bili of 3.6. Lactic acid is normal. She appears to have some hematuria with 1+ leukocyte Estrace but only 0-5 whites. Her ammonia level is elevated. Her INR is greater than 13. She has been off Coumadin for 2 days due to high INR's at home. CT scan shows severe biliary dilatation and pneumobilia. It also shows an infectious or inflammatory colitis and findings concerning for partial gastric outlet obstruction. Head CT is negative. Chest x-ray is nonacute. I had a discussion with this patient's daughter who is her caregiver and medical power. The patient's wishes have been to have no significant intervention. I discussed the findings of her laboratory and CAT scan with the daughter, who is in healthcare. She understands the severity of coagulopathy, bilirubinemia, and biliary dilatation with gas in the bile system. I described the need for transfer to tertiary care center with gastroenterology for definitive care. Lab Data 11/03/23 16:53 11/03/23 16:53 Radiology Impressions Chest X-Ray 11/03/23 16:29 IMPRESSION: No acute findings. Head CT 11/03/23 16:51 IMPRESSION: 1. No acute intracranial abnormality. Abdomen/Pelvis CT 11/03/23 18:37 IMPRESSION: 1. Findings suggestive of an infectious or inflammatory colitis. 2. Severe intrahepatic/extrahepatic biliary dilatation and pneumobilia, significantly increased since July 2020. Correlation with biliary labs and GI evaluation is recommended. 3. Prominent wall thickening of the gastric pylorus with findings concerning for partial gastric outlet obstruction. An underlying mucosal lesion/neoplasm would be difficult to exclude. 4. 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 Consider follow-up outpatient vascular evaluation. Thefindings were verbally communicated by telephone with Dr. DAILY at 7:46 PM CDT on 11/03/2023. Laboratory Results WBC 8.63 10^3/uL (3.29-11.43) 11/03/23 16:53 RBC 4.01 10^6/uL (3.85-5.65) 11/03/23 16:53 Hgb 12.00 g/dL (11.27-16.99) 11/03/23 16:53 Hct 36.4 % (36-47) 11/03/23 16:53 MCV 90.8 fl (85-98) 11/03/23 16:53 MCH 29.9 pg (27-33) 11/03/23 16:53 MCHC 33.0 g/dL (30-55) 11/03/23 16:53 RDW 13.4 % (12.1-15.1) 11/03/23 16:53 Plt Count 159 10^3/cmm (157-399) 11/03/23 16:53 MPV 11.5 fL (7.4-10.4) H 11/03/23 16:53 Neut % (Auto) 92.5 % 11/03/23 16:53 Lymph % (Auto) 3.0 % 11/03/23 16:53 [place] % (Auto) 4.2 % 11/03/23 16:53 Eos % (Auto) 0.0 % 11/03/23 16:53 Baso % (Auto) 0.1 % 11/03/23 16:53 Neut # (Auto) 7.98 10^3/uL (1.8-7.7) H 11/03/23 16:53 Lymph # (Auto) 0.3 10^3/uL (0.8-4.8) L 11/03/23 16:53 [place] # (Auto) 0.4 10^3/uL (0.2-0.9) 11/03/23 16:53 Eos # (Auto) 0.0 10^3/uL (0.0-0.8) 11/03/23 16:53 Baso # (Auto) 0.0 10^3/uL (0.0-0.1) 11/03/23 16:53 Nucleated RBC % (auto) 0 % 11/03/23 16:53 Nucleated RBCs # 0.0 /100WBC 11/03/23 16:53 PT 113.60 SECONDS (12.1-14.9) H 11/03/23 17:42 INR 14.63 (0.8-1.2) H* 11/03/23 17:42 Sodium 134 mmol/L (136-145) L 11/03/23 16:53 Potassium 5.0 mmol/L (3.5-5.1) 11/03/23 16:53 Chloride 97 mmol/L (98-107) L 11/03/23 16:53 Carbon Dioxide 24 mmol/L (22-29) 11/03/23 16:53 Anion Gap 18.0 (5-19) 11/03/23 16:53 BUN 33 mg/dL (8-23) H 11/03/23 16:53 Creatinine 0.8 mg/dL (0.5-0.9) 11/03/23 16:53 GFR Calculation Not Reportable 11/03/23 16:53 Glucose 103 mg/dL (65-115) 11/03/23 16:53 Calculated Osmolality 286 mOsm/kg (285-295) 11/03/23 16:53 Lactic Acid 1.6 mmol/L (0.5-2.2) 11/03/23 16:53 Calcium 8.5 mg/dL (8.5-10.5) 11/03/23 16:53 Total Bilirubin 3.6 mg/dL (0.15-1.2) H 11/03/23 16:53 AST 168 U/L (0-32) H 11/03/23 16:53 ALT 184 U/L (0-33) H 11/03/23 16:53 Alkaline Phosphatase 538 U/L (35-105) H 11/03/23 16:53 Ammonia 57 umol/L (11-51) H 11/03/23 17:42 Total Protein 6.2 g/dL (6.6-8.7) L 11/03/23 16:53 Albumin 3.0 g/dL (3.5-5.2) L 11/03/23 16:53 Globulin 3.2 g/dL (1.3-4.6) 11/03/23 16:53 Urine Color [place] (Yellow) A 11/03/23 18:18 Urine Appearance Cloudy (CLEAR) A 11/03/23 18:18 Urine pH 5.5 (5-7) 11/03/23 18:18 Ur Specific [place] 1.023 (1.005-1.030) 11/03/23 18:18 Urine Protein 1+ (Negative) A 11/03/23 18:18 Urine Glucose (UA) Negative (Normal) 11/03/23 18:18 Urine Ketones Trace (Negative) 11/03/23 18:18 Urine Blood Negative (Negative) 11/03/23 18:18 Urine Nitrate Positive (Negative) A 11/03/23 18:18 Urine Bilirubin 3+ (Negative) H 11/03/23 18:18 Urine Urobilinogen 2.0 mg/dL (Negative) H 11/03/23 18:18 Ur Leukocyte Esterase 1+ (Negative) A 11/03/23 18:18 Urine RBC 21-50 /hpf (0-2) H 11/03/23 18:18 Urine WBC 0-5 /hpf (0-5) 11/03/23 18:18 Ur Squamous Epith Cells 6-10 /hpf (0-5) 11/03/23 18:18 Amorphous Sediment Not Reportable 11/03/23 18:18 Urine Bacteria 2+ /hpf (NONE) H 11/03/23 18:18 Hyaline Casts 15.71 /lpf 11/03/23 18:18 All radiology interpretation(s) finalized by discharge Discharge Plan Discharge Patient Disposition: Home Clinical Impression: Altered mental status, Pneumobilia, Warfarin-induced coagulopathy, Colitis Condition: Stable Prescriptions: New levofloxacin 500 mg tablet 500 mg PO DAILY 7 Days Qty: 7 0RF metronidazole 500 mg tablet 500 mg PO BID 7 Days Qty: 14 0RF No Action omeprazole 20 mg capsule,delayed release(DR/EC) 20 mg PO QDAY vit C,E,Zn,Ac-vapmw0-yvl-zeax 250-2.5-0.5 mg capsule PO DAILY timolol 0.25 % drops 1 drp ophthalmic (eye) BID levothyroxine 50 mcg tablet 50 mcg PO QDAY atorvastatin 10 mg tablet 10 mg PO QDAY escitalopram oxalate [Lexapro] 5 mg tablet 10 mg PO QDAY PreserVision AREDS-2 250-90-40-1 mg capsule 1 tab PO BID acetaminophen 325 mg capsule 325 mg PO QID PRN All Day Allergy (cetirizine) 10 mg capsule 10 mg PO DAILY PRN latanoprost 0.005 % drops 1 drp ophthalmic (eye) DAILY warfarin 2.5 mg tablet 2.5 mg PO DAILY Qty: 30 3RF Protocol: Dose Management Condition: Monday Dose/Route: 2 mg Instruction: 1 x 2 mg tablet Condition: Monday Dose/Route: 0 mg Instruction: 0 tablets Condition: Monday Dose/Route: 0 mg Instruction: 0 tablets Condition: Monday Dose/Route: 0 mg Instruction: 0 tablets Condition: Dose/Route: 2 mg Instruction: 1 x 2 mg tablet Condition: Monday Dose/Route: 2 mg Instruction: 1 x 2 mg tablet Condition: Monday Dose/Route: 2 mg Instruction: 1 x 2 mg tablet Protocol Text: Adjustment Start Date: Monday11/01/23 INR Value: 6.1 INR Date: 10/31/23 Recheck Date: 11/02/23 warfarin 2 mg tablet See Rx Instructions .ROUTE .COMPLEX Qty: 30 3RF Protocol: Dose Management Condition: Monday Dose/Route: 2 mg Instruction: 1 x 2 mg tablet Condition: Monday Dose/Route: 0 mg Instruction: 0 tablets Condition: Monday Dose/Route: 0 mg Instruction: 0 tablets Condition: Monday Dose/Route: 0 mg Instruction: 0 tablets Condition: Dose/Route: 2 mg Instruction: 1 x 2 mg tablet Condition: Monday Dose/Route: 2 mg Instruction: 1 x 2 mg tablet Condition: Monday Dose/Route: 2 mg Instruction: 1 x 2 mg tablet Protocol Text: Adjustment Start Date: Monday11/01/23 INR Value: 6.1 INR Date: 10/31/23 Recheck Date: 11/02/23 Dose Instruction: Take 1 tablet by mouth once daily Rx Instructions: Take 1 tablet by mouth once daily warfarin 1 mg tablet 1 mg PO DIRECTED Qty: 90 3RF Protocol: Dose Management Condition: Monday Dose/Route: 2 mg Instruction: 1 x 2 mg tablet Condition: Monday Dose/Route: 0 mg Instruction: 0 tablets Condition: Monday Dose/Route: 0 mg Instruction: 0 tablets Condition: Monday Dose/Route: 0 mg Instruction: 0 tablets Condition: Dose/Route: 2 mg Instruction: 1 x 2 mg tablet Condition: Monday Dose/Route: 2 mg Instruction: 1 x 2 mg tablet Condition: Monday Dose/Route: 2 mg Instruction: 1 x 2 mg tablet Protocol Text: Adjustment Start Date: Monday11/01/23 INR Value: 6.1 INR Date: 10/31/23 Recheck Date: 11/02/23 Rx Instructions: take 1 tab daily on Mon warfarin 3 mg tablet 3 mg PO DAILY Qty: 90 3RF Protocol: Dose Management Condition: Monday Dose/Route: 2 mg Instruction: 1 x 2 mg tablet Condition: Monday Dose/Route: 0 mg Instruction: 0 tablets Condition: Monday Dose/Route: 0 mg Instruction: 0 tablets Condition: Monday Dose/Route: 0 mg Instruction: 0 tablets Condition: Dose/Route: 2 mg Instruction: 1 x 2 mg tablet Condition: Monday Dose/Route: 2 mg Instruction: 1 x 2 mg tablet Condition: Monday Dose/Route: 2 mg Instruction: 1 x 2 mg tablet Protocol Text: Adjustment Start Date: Monday11/01/23 INR Value: 6.1 INR Date: 10/31/23 Recheck Date: 11/02/23 Rx Instructions: take 1 tab daily on Mon, Mon, Mon, Mon, Mon warfarin 2 mg tablet 2 mg PO DIRECTED Qty: 90 3RF Protocol: Dose Management Condition: Monday Dose/Route: 2 mg Instruction: 1 x 2 mg tablet Condition: Monday Dose/Route: 0 mg Instruction: 0 tablets Condition: Monday Dose/Route: 0 mg Instruction: 0 tablets Condition: Monday Dose/Route: 0 mg Instruction: 0 tablets Condition: Dose/Route: 2 mg Instruction: 1 x 2 mg tablet Condition: Monday Dose/Route: 2 mg Instruction: 1 x 2 mg tablet Condition: Monday Dose/Route: 2 mg Instruction: 1 x 2 mg tablet Protocol Text: Adjustment Start Date: Monday11/01/23 INR Value: 6.1 INR Date: 10/31/23 Recheck Date: 11/02/23 Rx Instructions: take 1 tab daily on and Monday Discharge Orders: Discharge ED (Routine); Ordered 11/03/23 Ordered By: Bret Grullon Referrals: Oskar Meehan MD [Primary Care Provider] - Patient Instructions: Altered Mental Status (ED), Colitis (ED), Warfarin Toxicity (ED), Opioid Safety, Pain Management Activity Restrictions/Additional Instructions: Plenty of oral liquids, particularly for the next 48 hours. Medications as directed. Return for worsening mental status, fever despite 2-3 doses of antibiotics, lethargy, other concerning symptoms. Recheck the INR daily to ensure it is coming down. See your doctor next week. Coding Level of Care Code ED Breakfast Hostess for Chg Fwd Documented by User: Bret Grullon DO 11/04/23 17:49 HPI - Altered Mental Status 2 General: Chief Complaint: Altered Mental Status Stated Complaint: falls, ams Time Seen by Provider: 11/03/23 16:28 Related Data Home Medications Medication Instructions Recorded Confirmed omeprazole 20 mg capsule,delayed 20 mg PO QDAY 03/27/19 08/30/23 release vit cap PO DAILY 03/27/19 08/30/23 C,E,zinc,Wg-sqaxp-5-lutein-zeaxanthin 250 mg-2.5 mg-0.5 mg capsule atorvastatin 10 mg tablet 10 mg PO QDAY 03/29/19 08/30/23 levothyroxine 50 mcg tablet 50 mcg PO QDAY 03/29/19 08/30/23 acetaminophen 325 mg capsule 325 mg PO QID PRN 05/11/22 08/30/23 cetirizine 10 mg capsule (All Day 10 mg PO DAILY PRN 05/11/22 08/30/23 Allergy (cetirizine)) escitalopram oxalate 5 mg tablet 10 mg PO QDAY 05/11/22 08/30/23 (Lexapro) vit C 250 mg-vit E 90 mg-zinc 40 1 tab PO BID 05/11/22 08/30/23 mg-copper 1 [id number]-kigewp capsule (PreserVision AREDS-2) latanoprost 0.005 % eye drops 1 drp ophthalmic (eye) DAILY 11/09/22 08/30/23 timolol 0.25 % eye drops 1 drp ophthalmic (eye) BID 11/09/22 08/30/23 Previous Rx's Medication Instructions Recorded warfarin 2.5 mg tablet 2.5 mg PO DAILY #30 tabs 08/30/19 warfarin 2 mg tablet See Rx Instructions .Route 03/16/20 .COMPLEX #30 tabs warfarin 1 mg tablet 1 mg PO DIRECTED #90 tabs 05/23/22 warfarin 3 mg tablet 3 mg PO DAILY #90 tabs 01/31/23 warfarin 2 mg tablet 2 mg PO DIRECTED #90 tabs 09/18/23 levofloxacin 500 mg tablet 500 mg PO DAILY 7 days #7 tabs 11/03/23 metronidazole 500 mg tablet 500 mg PO BID 7 days #14 tabs 11/03/23 Allergies Allergy/AdvReac Type Severity Reaction Status Date / Time piperacillin [From Zosyn] Allergy Severe ALGY-Hives Verified 08/30/23 10:31 tazobactam [From Zosyn] Allergy Severe ALGY-Hives Verified 08/30/23 10:31 [facility] ED 2 PFSH: Medical History Warfarin anticoagulation Anemia GERD (gastroesophageal reflux disease) Essential hypertension Hyperlipidemia Shingles Severe aortic stenosis Pulmonary HTN Atrial fibrillation Surgical History S/P hip replacement S/P rotator cuff repair Status cardiac pacemaker S/P AVR (aortic valve replacement) Family History Grandmother Hypertension Congestive heart failure (CHF) Other Cancer Social History Smoking and tobacco/nicotine status: former use of tobacco/nicotine Alcohol intake: never Substance/Drug Use: never Lives independently: Yes Marital status: / Current occupational status: retired Current gender identity: Female Josiane/Mosque: [employer] Course 2 Vital Signs: Vital signs: Vital Signs Temperature 97.7 F 11/03/23 16:30 Pulse Rate 100 11/03/23 21:57 Respiratory Rate 16 11/03/23 21:57 Blood Pressure 107/71 11/03/23 21:57 Pulse Oximetry 95 11/03/23 21:57 Oxygen Delivery Me thod Room Air 11/03/23 18:00 MDM - Altered Mental Status Medical Decision Making 83-year-old female checked out at shift change. This lady has been more altered and weak than usual. Her vitals here been stable. She is afebrile. Saturations are good on room air. CBC is normal. BMP is not terribly remarkable. Liver enzymes however are elevated with a total bili of 3.6. Lactic acid is normal. She appears to have some hematuria with 1+ leukocyte Estrace but only 0-5 whites. Her ammonia level is elevated. Her INR is greater than 13. She has been off Coumadin for 2 days due to high INR's at home. CT scan shows severe biliary dilatation and pneumobilia. It also shows an infectious or inflammatory colitis and findings concerning for partial gastric outlet obstruction. Head CT is negative. Chest x-ray is nonacute. I had a discussion with this patient's daughter who is her caregiver and medical power. The patient's wishes have been to have no significant intervention. I discussed the findings of her laboratory and CAT scan with the daughter, who is in healthcare. She understands the severity of coagulopathy, bilirubinemia, and biliary dilatation with gas in the bile system. I described the need for transfer to tertiary care center with gastroenterology for definitive care. Lab Data 11/03/23 16:53 11/03/23 16:53 Radiology Impressions Chest X-Ray 11/03/23 16:29 IMPRESSION: No acute findings. Head CT 11/03/23 16:51 IMPRESSION: 1. No acute intracranial abnormality. Abdomen/Pelvis CT 11/03/23 18:37 IMPRESSION: 1. Findings suggestive of an infectious or inflammatory colitis. 2. Severe intrahepatic/extrahepatic biliary dilatation and pneumobilia, significantly increased since July 2020. Correlation with biliary labs and GI evaluation is recommended. 3. Prominent wall thickening of the gastric pylorus with findings concerning for partial gastric outlet obstruction. An underlying mucosal lesion/neoplasm would be difficult to exclude. 4. 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 Consider follow-up outpatient vascular evaluation. Thefindings were verbally communicated by telephone with Dr. DAILY at 7:46 PM CDT on 11/03/2023. Laboratory Results WBC 8.63 10^3/uL (3.29-11.43) 11/03/23 16:53 RBC 4.01 10^6/uL (3.85-5.65) 11/03/23 16:53 Hgb 12.00 g/dL (11.27-16.99) 11/03/23 16:53 Hct 36.4 % (36-47) 11/03/23 16:53 MCV 90.8 fl (85-98) 11/03/23 16:53 MCH 29.9 pg (27-33) 11/03/23 16:53 MCHC 33.0 g/dL (30-55) 11/03/23 16:53 RDW 13.4 % (12.1-15.1) 11/03/23 16:53 Plt Count 159 10^3/cmm (157-399) 11/03/23 16:53 MPV 11.5 fL (7.4-10.4) H 11/03/23 16:53 Neut % (Auto) 92.5 % 11/03/23 16:53 Lymph % (Auto) 3.0 % 11/03/23 16:53 [place] % (Auto) 4.2 % 11/03/23 16:53 Eos % (Auto) 0.0 % 11/03/23 16:53 Baso % (Auto) 0.1 % 11/03/23 16:53 Neut # (Auto) 7.98 10^3/uL (1.8-7.7) H 11/03/23 16:53 Lymph # (Auto) 0.3 10^3/uL (0.8-4.8) L 11/03/23 16:53 [place] # (Auto) 0.4 10^3/uL (0.2-0.9) 11/03/23 16:53 Eos # (Auto) 0.0 10^3/uL (0.0-0.8) 11/03/23 16:53 Baso # (Auto) 0.0 10^3/uL (0.0-0.1) 11/03/23 16:53 Nucleated RBC % (auto) 0 % 11/03/23 16:53 Nucleated RBCs # 0.0 /100WBC 11/03/23 16:53 PT 113.60 SECONDS (12.1-14.9) H 11/03/23 17:42 INR 14.63 (0.8-1.2) H* 11/03/23 17:42 Sodium 134 mmol/L (136-145) L 11/03/23 16:53 Potassium 5.0 mmol/L (3.5-5.1) 11/03/23 16:53 Chloride 97 mmol/L (98-107) L 11/03/23 16:53 Carbon Dioxide 24 mmol/L (22-29) 11/03/23 16:53 Anion Gap 18.0 (5-19) 11/03/23 16:53 BUN 33 mg/dL (8-23) H 11/03/23 16:53 Creatinine 0.8 mg/dL (0.5-0.9) 11/03/23 16:53 GFR Calculation Not Reportable 11/03/23 16:53 Glucose 103 mg/dL (65-115) 11/03/23 16:53 Calculated Osmolality 286 mOsm/kg (285-295) 11/03/23 16:53 Lactic Acid 1.6 mmol/L (0.5-2.2) 11/03/23 16:53 Calcium 8.5 mg/dL (8.5-10.5) 11/03/23 16:53 Total Bilirubin 3.6 mg/dL (0.15-1.2) H 11/03/23 16:53 AST 168 U/L (0-32) H 11/03/23 16:53 ALT 184 U/L (0-33) H 11/03/23 16:53 Alkaline Phosphatase 538 U/L (35-105) H 11/03/23 16:53 Ammonia 57 umol/L (11-51) H 11/03/23 17:42 Total Protein 6.2 g/dL (6.6-8.7) L 11/03/23 16:53 Albumin 3.0 g/dL (3.5-5.2) L 11/03/23 16:53 Globulin 3.2 g/dL (1.3-4.6) 11/03/23 16:53 Urine Color [place] (Yellow) A 11/03/23 18:18 Urine Appearance Cloudy (CLEAR) A 11/03/23 18:18 Urine pH 5.5 (5-7) 11/03/23 18:18 Ur Specific [place] 1.023 (1.005-1.030) 11/03/23 18:18 Urine Protein 1+ (Negative) A 11/03/23 18:18 Urine Glucose (UA) Negative (Normal) 11/03/23 18:18 Urine Ketones Trace (Negative) 11/03/23 18:18 Urine Blood Negative (Negative) 11/03/23 18:18 Urine Nitrate Positive (Negative) A 11/03/23 18:18 Urine Bilirubin 3+ (Negative) H 11/03/23 18:18 Urine Urobilinogen 2.0 mg/dL (Negative) H 11/03/23 18:18 Ur Leukocyte Esterase 1+ (Negative) A 11/03/23 18:18 Urine RBC 21-50 /hpf (0-2) H 11/03/23 18:18 Urine WBC 0-5 /hpf (0-5) 11/03/23 18:18 Ur Squamous Epith Cells 6-10 /hpf (0-5) 11/03/23 18:18 Amorphous Sediment Not Reportable 11/03/23 18:18 Urine Bacteria 2+ /hpf (NONE) H 11/03/23 18:18 Hyaline Casts 15.71 /lpf 11/03/23 18:18 Discharge Plan Discharge Patient Disposition: Home Clinical Impression: Altered mental status, Pneumobilia, Warfarin-induced coagulopathy, Colitis Condition: Stable Prescriptions: New levofloxacin 500 mg tablet 500 mg PO DAILY 7 Days Qty: 7 0RF metronidazole 500 mg tablet 500 mg PO BID 7 Days Qty: 14 0RF No Action omeprazole 20 mg capsule,delayed release(DR/EC) 20 mg PO QDAY vit C,E,Zn,Ie--enn-zeax 250-2.5-0.5 mg capsule PO DAILY timolol 0.25 % drops 1 drp ophthalmic (eye) BID levothyroxine 50 mcg tablet 50 mcg PO QDAY atorvastatin 10 mg tablet 10 mg PO QDAY escitalopram oxalate [Lexapro] 5 mg tablet 10 mg PO QDAY PreserVision AREDS-2 250-90-40-1 mg capsule 1 tab PO BID acetaminophen 325 mg capsule 325 mg PO QID PRN All Day Allergy (cetirizine) 10 mg capsule 10 mg PO DAILY PRN latanoprost 0.005 % drops 1 drp ophthalmic (eye) DAILY warfarin 2.5 mg tablet 2.5 mg PO DAILY Qty: 30 3RF Protocol: Dose Management Condition: Monday Dose/Route: 2 mg Instruction: 1 x 2 mg tablet Condition: Monday Dose/Route: 0 mg Instruction: 0 tablets Condition: Monday Dose/Route: 0 mg Instruction: 0 tablets Condition: Monday Dose/Route: 0 mg Instruction: 0 tablets Condition: Dose/Route: 2 mg Instruction: 1 x 2 mg tablet Condition: Monday Dose/Route: 2 mg Instruction: 1 x 2 mg tablet Condition: Monday Dose/Route: 2 mg Instruction: 1 x 2 mg tablet Protocol Text: Adjustment Start Date: Monday11/01/23 INR Value: 6.1 INR Date: 10/31/23 Recheck Date: 11/02/23 warfarin 2 mg tablet See Rx Instructions .ROUTE .COMPLEX Qty: 30 3RF Protocol: Dose Management Condition: Monday Dose/Route: 2 mg Instruction: 1 x 2 mg tablet Condition: Monday Dose/Route: 0 mg Instruction: 0 tablets Condition: Monday Dose/Route: 0 mg Instruction: 0 tablets Condition: Monday Dose/Route: 0 mg Instruction: 0 tablets Condition: Dose/Route: 2 mg Instruction: 1 x 2 mg tablet Condition: Monday Dose/Route: 2 mg Instruction: 1 x 2 mg tablet Condition: Monday Dose/Route: 2 mg Instruction: 1 x 2 mg tablet Protocol Text: Adjustment Start Date: Monday11/01/23 INR Value: 6.1 INR Date: 10/31/23 Recheck Date: 11/02/23 Dose Instruction: Take 1 tablet by mouth once daily Rx Instructions: Take 1 tablet by mouth once daily warfarin 1 mg tablet 1 mg PO DIRECTED Qty: 90 3RF Protocol: Dose Management Condition: Monday Dose/Route: 2 mg Instruction: 1 x 2 mg tablet Condition: Monday Dose/Route: 0 mg Instruction: 0 tablets Condition: Monday Dose/Route: 0 mg Instruction: 0 tablets Condition: Monday Dose/Route: 0 mg Instruction: 0 tablets Condition: Dose/Route: 2 mg Instruction: 1 x 2 mg tablet Condition: Monday Dose/Route: 2 mg Instruction: 1 x 2 mg tablet Condition: Monday Dose/Route: 2 mg Instruction: 1 x 2 mg tablet Protocol Text: Adjustment Start Date: Monday11/01/23 INR Value: 6.1 INR Date: 10/31/23 Recheck Date: 11/02/23 Rx Instructions: take 1 tab daily on Mon warfarin 3 mg tablet 3 mg PO DAILY Qty: 90 3RF Protocol: Dose Management Condition: Monday Dose/Route: 2 mg Instruction: 1 x 2 mg tablet Condition: Monday Dose/Route: 0 mg Instruction: 0 tablets Condition: Monday Dose/Route: 0 mg Instruction: 0 tablets Condition: Monday Dose/Route: 0 mg Instruction: 0 tablets Condition: Dose/Route: 2 mg Instruction: 1 x 2 mg tablet Condition: Monday Dose/Route: 2 mg Instruction: 1 x 2 mg tablet Condition: Monday Dose/Route: 2 mg Instruction: 1 x 2 mg tablet Protocol Text: Adjustment Start Date: Monday11/01/23 INR Value: 6.1 INR Date: 10/31/23 Recheck Date: 11/02/23 Rx Instructions: take 1 tab daily on Mon, Mon, Mon, Mon, Mon warfarin 2 mg tablet 2 mg PO DIRECTED Qty: 90 3RF Protocol: Dose Management Condition: Monday Dose/Route: 2 mg Instruction: 1 x 2 mg tablet Condition: Monday Dose/Route: 0 mg Instruction: 0 tablets Condition: Monday Dose/Route: 0 mg Instruction: 0 tablets Condition: Monday Dose/Route: 0 mg Instruction: 0 tablets Condition: Dose/Route: 2 mg Instruction: 1 x 2 mg tablet Condition: Monday Dose/Route: 2 mg Instruction: 1 x 2 mg tablet Condition: Monday Dose/Route: 2 mg Instruction: 1 x 2 mg tablet Protocol Text: Adjustment Start Date: Monday11/01/23 INR Value: 6.1 INR Date: 10/31/23 Recheck Date: 11/02/23 Rx Instructions: take 1 tab daily on and Monday Discharge Orders: Discharge ED (Routine); Ordered 11/03/23 Ordered By: Bret Grullon Referrals: Oskar Meehan MD [Primary Care Provider] - Patient Instructions: Altered Mental Status (ED), Colitis (ED), Warfarin Toxicity (ED), Opioid Safety, Pain Management Activity Restrictions/Additional Instructions: Plenty of oral liquids, particularly for the next 48 hours. Medications as directed. Return for worsening mental status, fever despite 2-3 doses of antibiotics, lethargy, other concerning symptoms. Recheck the INR daily to ensure it is coming down. See your doctor next week. Coding Level of Care Code ED Breakfast Hostess for Sudarshan Lynch
--- NOTE | 2023-11-03 16:51 | CTR_ITS ---
PROCEDURE INFORMATION: Exam: CT Head Without Contrast Exam date and time: 11/03/2023 5:54 PM Age: 83 years old Clinical indication: Altered mental status/memory loss; Confusion or disorientation; Additional info: AMS, frquent falls TECHNIQUE: Imaging protocol: Computed tomography of the head without contrast. Radiation optimization: All CT scans at this facility use at least one of these dose optimization techniques: automated exposure control; mA and/or kV adjustment per patient size (includes targeted exams where dose is matched to clinical indication); or iterative reconstruction. COMPARISON: No relevant prior studies available. RADIATION DOSE METRICS: Total DLP (mGy-cm): 1048.48 FINDINGS: Brain: No evidence of intra-axial or extra-axial hemorrhage. No mass effect or midline shift. Stewart-white differentiation is maintained. Cortical calcifications noted in the left frontal lobe. Focal deep white matter hypoattenuation, which may reflect a remote infarct. Basilar cisterns are patent. Cerebral ventricles: No hydrocephalus. Paranasal sinuses: The visualized paranasal sinuses are well aerated. Mastoid air cells: The visualized mastoids and middle ears are clear. Bones: Calvarium is intact. No evidence of acute fracture. Soft tissues: No gross soft tissue abnormality. CT/CT head wo con* [id number] IMPRESSION: 1. No acute intracranial abnormality.
[2023-11-03 17:00] LABS: Basophils % 0.1 %; Hematocrit 36.4 % (36-47); Lymphocytes # 0.3 10^3/uL (0.8-4.8); Mean Corpuscular Hemoglobin 29.9 pg (27-33); Mean Corpuscular Volume 90.8 fl (85-98); Mean Platelet Volume 11.5 fL (7.4-10.4); Monocytes # 0.4 10^3/uL (0.2-0.9); Monocytes % 4.2 %; Neutrophils # 7.98 10^3/uL (1.8-7.7); Neutrophils % 92.5 %; Nucleated Red Blood Cells % 0 %; Platelet Count 159 10^3/cmm (157-399); Red Blood Count 4.01 10^6/uL (3.85-5.65); Red Cell Distribution Width 13.4 % (12.1-15.1); White Blood Count 8.63 10^3/uL (3.29-11.43)
[2023-11-03 17:18] LABS: Alanine Aminotransferase 184 U/L (0-33); Alkaline Phosphatase 538 U/L (35-105); Blood Urea Nitrogen 33 mg/dL (8-23); Calcium 8.5 mg/dL (8.5-10.5); Carbon Dioxide 24 mmol/L (22-29); Chloride 97 mmol/L (98-107); Creatinine Clr Calc Pharmacy 33.1333; Globulin 3.2 g/dL (1.3-4.6); Glucose 103 mg/dL (65-115); Osmolality Calculated 286 mOsm/kg (285-295); Sodium 134 mmol/L (136-145); Total Bilirubin 3.6 mg/dL (0.15-1.2); Total Protein 6.2 g/dL (6.6-8.7)
[2023-11-03 17:19] LABS: Aspartate Amino Transferase 168 U/L (0-32)
[2023-11-03 18:00] VITALS: BP 118/68; PULSE 94; O2SAT 97
[2023-11-03 18:25] LABS: Charge for UA Resulting for Rev
--- NOTE | 2023-11-03 18:37 | CTR_ITS ---
PROCEDURE INFORMATION: Exam: CT Abdomen And Pelvis With Contrast Exam date and time: 11/03/2023 7:06 PM Age: 83 years old Clinical indication: Abdominal pain; Generalized; Prior surgery; Surgery date: 6+ months; Surgery type: Avr. Hip; Patient HX: C/O diffuse abd pain TECHNIQUE: Imaging protocol: Computed tomography of the abdomen and pelvis with contrast. Radiation optimization: All CT scans at this facility use at least one of these dose optimization techniques: automated exposure control; mA and/or kV adjustment per patient size (includes targeted exams where dose is matched to clinical indication); or iterative reconstruction. Contrast material: OMNI 350; Contrast volume: 80 ml; Contrast route: INTRAVENOUS (IV); COMPARISON: CT abdomen pelvis w con* [id number] 07/04/2020 1:00 AM RADIATION DOSE METRICS: Total DLP (mGy-cm): 1446.36 FINDINGS: Lungs: Small right-sided pleural effusion with passive atelectasis. Diaphragm: No evidence of diaphragmatic defect. Hepatobiliary: There is severe intrahepatic biliary dilatation and pneumobilia with dilation of the CBD to 25 mm, containing complex material suggesting stasis. No evidence of focal hepatic lesion. There is cholelithiasis with gallbladder distension and gallbladder wall thickening, nonspecific. Small pneumobilia within the gallbladder is noted. Pancreas: Unremarkable. Spleen: Unremarkable. Adrenal glands: Unremarkable. Kidneys and ureters: There is a simple appearing left-sided renal cyst for which dedicated imaging follow-up is not required. Otherwise no evidence of renal parenchymal abnormality. No hydronephrosis or ureteral stone. Stomach and bowel: There is wall thickening of the ascending and transverse colon suggestive of an infectious or inflammatory colitis. There is prominent wall thickening of the gastric pylorus concerning for an underlying mucosal lesion. There is gastric distension and a fluid level, which may represent partial gastric outlet obstruction. Colonic diverticulosis without evidence of acute diverticulitis. No small bowel obstruction. Appendix: Normal appendix. Intraperitoneal space: Trace free fluid. No evidence of free air or fluid collection. Vasculature: Extensive aortobiiliac atherosclerotic calcifications without aneurysmal dilatation or dissection. The celiac trunk, SMA and KENDELL are grossly patent. Moderate-severe narrowing of the origin of the SMA secondary to densely calcified atherosclerotic plaque. No evidence of IVC thrombus. The portal vein, SMV and splenic veins are grossly patent. There is moderate narrowing of the main portal vein and SMV near the portal venous confluence. Lymph nodes: No adenopathy. Urinary bladder: Grossly unremarkable. Reproductive: Grossly unremarkable. Bones/joints: No evidence of acute fracture or aggressive osseous lesion. L3 and L4 chronic compression fractures with approximately 20% and 50% height loss, respectively. 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 There is osseous irregularity of the upper sacrum suggestive of a chronic fracture. 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 Soft tissues: Diffuse soft tissue edema without evidence of fluid collection or hematoma in the superficial soft tissues. CT/CT abdomen pelvis w con* [id number] IMPRESSION: 1. Findings suggestive of an infectious or inflammatory colitis. 2. Severe intrahepatic/extrahepatic biliary dilatation and pneumobilia, significantly increased since July 2020. Correlation with biliary labs and GI evaluation is recommended. 3. Prominent wall thickening of the gastric pylorus with findings concerning for partial gastric outlet obstruction. An underlying mucosal lesion/neoplasm would be difficult to exclude. 4. 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 Consider follow-up outpatient vascular evaluation. Thefindings were verbally communicated by telephone with Dr. JENKINS at 7:46 PM CDT on 11/03/2023.
[2023-11-03 18:44] LABS: Bilirubin Urine 3+ (Negative); Blood Urine Negative (Negative); Glucose Urine UA Negative (Normal); Ketones Urine Trace (Negative); Leukocyte Esterase Urine 1+ (Negative); Nitrate Urine Positive (Negative); Protein Urine 1+ (Negative); Specific Gravity, Urine 1.023 (1.005-1.030); Urine Appearance Cloudy (CLEAR); pH Urine 5.5 (5-7)
[2023-11-03 18:45] LABS: INR 14.63 (0.8-1.2)
[2023-11-03 18:45] LABS: Urine Color Orange (Yellow)
[2023-11-03 18:48] LABS: Hyaline Casts Urine 15.71 /lpf; RBC Urine 21-50 /hpf (0-2); WBC Urine 0-5 /hpf (0-5)
[2023-11-03 19:00] VITALS: BP 144/99; PULSE 84; O2SAT 94
[2023-11-03 19:03] LABS: Ammonia 57 umol/L (11-51)
[2023-11-03 19:06] LABS: Add Urine Culture? Yes; Bacteria Urine 2+ /hpf; UA Slide Review UA Slide Review Perf
[2023-11-03] MEDS: phytonadione (ADULT) 10 mg/mL Ampule 1 mL PO (19:07)
[2023-11-03 20:00] VITALS: BP 167/104; PULSE 89; O2SAT 96
[2023-11-03 21:05] LABS: Lactic Sepsis W/Reflex 1.6 mmol/L (0.5-2.2)
[2023-11-03 21:41] VITALS: BP 107/71; PULSE 93; O2SAT 95
[2023-11-03] MEDS: levoFLOXacin 500 mg Tablet PO (21:47)
[2023-11-03] MEDS: metroNIDAZOLE 500 MG Tablet PO (21:47)
[2023-11-03 21:57] VITALS: BP 107/71; PULSE 100; RESP 16; O2SAT 95
[2023-11-04] MEDS: iohexol 350 mg/mL 500 mL Btl (per mL) IV (15:37)
== END 2023-11-03 21:58 | disposition home or self-care (01) ==
PROVIDERS: Family Medicine; Emergency Provider Emergency Medicine; PCP Family Medicine
DX: R41.82 Altered mental status, unspecified (principal); D68.8 Other specified coagulation defects; K52.9 Noninfective gastroenteritis and colitis, unspecified; Z79.01 Long term (current) use of anticoagulants; Z87.891 Personal history of nicotine dependence; I10 Essential (primary) hypertension; E78.5 Hyperlipidemia, unspecified; Z95.0 Presence of cardiac pacemaker; K83.8 Other specified diseases of biliary tract
CPT/HCPCS: 36415; 70450; 71045; 74177; 80053; 81003; 81015; 82140; 83605; 85025; 85610; 87086; 93005; 99285; J3430